=== PATIENT | male | born 1955 | race Asian ===

== ENCOUNTER 2016-10-29 09:18 | Emergency (ER) | payer OTHER ==
[2016-10-29 09:28] VITALS: BP 158/89; PULSE 87; RESP 18; TEMP 97.2; O2SAT 95
[2016-10-29] MEDS ORDERED: predniSONE 20 MG TAB PO ONE (10:02)
[2016-10-29] MEDS ORDERED: FAMOTIDINE 20 MG TAB PO ONE (10:03)
--- NOTE | 2016-10-29 10:16 | UCPHY ---
H & P Time Seen by Provider: 10/29/16 09:41 Patient Type: New HPI/ROS: This patient complains of lip swelling to the upper lip over the past day and half. He noticed the symptoms starting after eating shrimp. He does have a history of allergies to shellfish but has been able tolerate shrimp prior to this. This swelling was mild last night but became moderate this morning and prompted his visit. He reports that the swelling extends in the upper lip to the left cheek a bit. He took Benadryl last night and has not taken anything this morning. He has no other associated symptoms. ROS: He reports no fevers or other constitutional symptoms. HEENT: No difficulty swallowing or talking. Pulmonary: No wheezing or shortness of breath. Cardiovascular: No heart palpitations or lightheadedness. GI: No nausea or vomiting. Integumentary: No skin itching or rash. 7 point ROS is otherwise negative. Past Medical/Surgical History: Allergies to shellfish otherwise healthy. Smoking Status: Former smoker Physical Exam: General Appearance: Pleasant Tibetan gentleman. Alert, no distress. Eyes: Pupils equal and round no pallor or injection. ENT, Mouth: Mucous membranes moist. The patient has moderate angioedema to the upper lip. There is no dental tenderness to percussion or gingival swelling. He has a Mallampati 1 airway with no evidence of airway obstruction. He has no stridor or dysphonia. No drooling no submental swelling. Respiratory: There are no retractions, lungs are clear to auscultation. Cardiovascular: Regular rate and rhythm. Neurological: Alert with no focal deficits. Skin: Warm and dry, no rashes. Musculoskeletal: Neck is supple nontender. Psychiatric: Mood and affect normal DIFFERENTIAL DIAGNOSIS: After history and physical exam differential diagnosis was considered for allergic angioedema, doubt cellulitis Constitutional: Initial Vital Signs Temperature (C) 36.2 C 10/29/16 09:26 Heart Rate 87 10/29/16 09:26 Respiratory Rate 18 10/29/16 09:26 Blood Pressure 158/89 H 10/29/16 09:26 O2 Sat (%) 95 10/29/16 09:26 O2 Delivery Mode Room Air Allergies/Adverse Reactions: No Known Allergies Allergy (Verified 10/29/16 09:25) Home Medications: Medication Instructions Recorded predniSONE 60 mg PO DAILY #11 tab 10/29/16 Medical Decision Making ED Course/Re-evaluation: Prednisone and Pepcid p. o.. I counseled the patient regarding allergic angioedema I suspect the shrimp was the culprit allergen. Clinically, I appreciate no evidence of anaphylaxis or other concerning findings. No evidence of airway obstruction currently. - Data Points Medications Given: Discontinued Medications Famotidine (Pepcid) 40 mg PO EDNOW ONE Stop: 10/29/16 10:04 Last Admin: 10/29/16 10:13 Dose: 40 mg Prednisone (Prednisone) 60 mg PO EDNOW ONE Stop: 10/29/16 10:03 Last Admin: 10/29/16 10:13 Dose: 60 mg Departure - Departure Disposition: Home, Routine, Self-Care Clinical Impression: Angioedema of lips Qualifiers: Encounter type: initial encounter Qualified Code(s): T78.3XXA - Angioneurotic edema, initial encounter Condition: Good Instructions: Angioedema (ED) Additional Instructions: Diagnosis: Angioedema of lips Your lip swelling is likely attributable to an allergy to shrimp. Plan: Avoid shrimp Consider allergy testing with Dr. Faustin Prednisone as prescribed in the morning after breakfast Benadryl in addition 25-50 mg per 6 hours while awake until symptoms resolve Pepcid in addition 40 mg a day until symptoms resolve Go to the emergency department for any significant worsening despite the treatment plan. Referrals: Sharee Houser MD [Primary Care Provider] - As per Instructions Jessica FAUSTIN [Medical Doctor] - As per Instructions Prescriptions: predniSONE 60 mg PO DAILY #11 tab - PQRS PQRS Measurement: NA
== END 2016-10-29 10:24 | disposition home or self-care (01) ==
LOC: CED 09:18
DX: T78.3XXA Angioneurotic edema, initial encounter (principal)
CPT/HCPCS: G0463-PO

== ENCOUNTER 2018-08-31 14:46 | Day surgery (SDC) | payer OTHER ==
[2018-08-31] MEDS ORDERED: PROPOFOL/EMULSION 500 MG/50 ML BOTTLE IV ONE (15:41)
[2018-08-31] MEDS ORDERED: LIDOCAINE 2% 5 ML SDV ONE (15:44)
[2018-08-31] MEDS ORDERED: MIDAZOLAM 2 MG/2 ML VIAL IVP ONE (16:10)
--- NOTE | 2018-08-31 16:11 | POSTANESTH ---
Post Anesthetic Evaluation Cardiovascular Status: Normal, Stable Respiratory Status: Normal, Stable Level of Consciousness/Mental Status: Can Participate in Eval, Mildly Sleepy, Arousable Pain Control: Adequate, Prn Tx Ordered Nausea/Vomiting Control: Adequate, Prn Tx Ordered Complications Possibly Related to Anesthesia: None Noted
--- NOTE | 2018-08-31 16:11 | PDANEPAE ---
ANE History of Present Illness gastric cancer ANE Past Medical History - Cardiovascular History Hx Hypertension: No Hx Arrhythmias: No Hx Chest Pain: No Hx Coronary Artery / Peripheral Vascular Disease: No Hx CHF / Valvular Disease: No Hx Palpitations: No - Pulmonary History Hx COPD: No Hx Asthma/Reactive Airway Disease: No Hx Recent Upper Respiratory Infection: No Hx Oxygen in Use at Home: No Hx Sleep Apnea: No Sleep Apnea Screening Result - Last Documented: Negative - Neurologic History Hx Cerebrovascular Accident: No Hx Seizures: No Hx Dementia: No - Endocrine History Hx Diabetes: No Obesity: no - Renal History Hx Renal Disorders: No - Liver History Hx Hepatic Disorders: No - Neurological & Psychiatric Hx Hx Neurological and Psychiatric Disorders: No - Cancer History Hx Cancer: Yes Cancer History Comment: NEW DX [place] 08/20/18 - Congenital Disorder History Hx Congenital Disorders: No - GI History Hx Gastrointestinal Disorders: Yes Gastrointestinal History Comment: DYSPEPSIA. LUQ PAIN - Other Health History Other Health History: ANEMIA - Chronic Pain History Chronic Pain: Yes (LUQ) - Surgical History Prior Surgeries: [facility]. HEMORRHOID BANDING ANE Review of Systems Review of systems is: negative Review of Systems: - Exercise capacity METS (RN): 4 METS ANE Patient History - Allergies Allergies/Adverse Reactions: No Known Allergies Allergy (Verified 10/29/16 09:25) - Home Medications Home medications: home medication list seen and reviewed Home Medications: Fentanyl ONCE 08/28/18 [Last Taken Unknown] Bentyl 20 MG (*) 08/31/18 [Last Taken 08/30/18 21:00] Percocet 5-325 mg Tablet 08/31/18 [Last Taken 08/30/18 21:00] - NPO status NPO Since - Liquids (Date): 08/31/18 NPO Since - Liquids (Time): 13:00 NPO Since - Solids (Date): 08/31/18 NPO Since - Solids (Time): 08:00 - Anes Hx Anes Hx: no prior problems - Smoking Hx Smoking Status: Former smoker ANE Labs/Vital Signs - Vital Signs Blood Pressure: 129/81 Heart Rate: 78 Respiratory Rate: 16 O2 Sat (%): 96 Height: 172.72 cm Weight: 68.039 kg ANE Physical Exam - Airway Neck exam: FROM Mallampati Score: Class 2 Mouth exam: normal dental/mouth exam - Pulmonary Pulmonary: no respiratory distress - Cardiovascular Cardiovascular: regular rate and rhythym - ASA Status ASA Status: III ANE Anesthesia Plan Anesthesia Plan: GA with mask
[2018-08-31] MEDS ORDERED: LR 1,000 ML IV ONE (16:19)
[2018-08-31] MEDS ORDERED: INDOMETHACIN 50 MG SUPP PR PRN (16:19)
--- NOTE | 2018-08-31 16:19 | PDGENHP ---
History & Physical Chief Complaint: gastric cancer staging History of Present Illness: 62 year old male presents for gastric cancer staging. Pertinent Past, Social, Family History: PMHx; gastric cancer. SugHx; CCY. Former smoker Relevant Physical Exam: HEENT: anicteric. Cv: RRR+s1s2. Lungs: CTAB. Abd; soft, nt, +bs Cardiorespiratory Assessment: ASA 3
[2018-08-31] MEDS ORDERED: NS 500 ML IV SCH (16:30)
[2018-08-31] MEDS ORDERED: ACETAMINOPHEN 500 MG TAB PO PRN (16:38)
[2018-08-31] MEDS ORDERED: NALOXONE HCL 0.4 MG/ML INJ IVP PRN (16:38)
[2018-08-31] MEDS ORDERED: ALBUTEROL 3 ML DEYVIAL IH PRN (16:38)
[2018-08-31] MEDS ORDERED: ONDANSETRON 4 MG/2 ML VIAL IVP PRN (16:38)
[2018-08-31] MEDS ORDERED: DIAZEPAM 5 MG/ML 1 ML SYR IVP PRN (16:38)
[2018-08-31] MEDS ORDERED: LR 500 ML IV PRN (16:38)
[2018-08-31] MEDS ORDERED: fentaNYL 100 MCG/2 ML INJ IVP PRN (16:38)
[2018-08-31] MEDS ORDERED: oxyCODONE IR 5 MG TAB PO PRN (16:38)
[2018-08-31] MEDS ORDERED: HYDROCODONE/APAP 5/325 TAB PO PRN (16:38)
[2018-08-31] MEDS ORDERED: HYDROmorphONE/DILAUDID 2 MG/ML INJ IVP PRN (16:38)
--- NOTE | 2018-08-31 17:12 | GIREPORT ---
[facility] Surgical Services - Endoscopy Department Patient Name: Virgen Canchola Procedure Date: 08/31/2018 4:25 PM Patient Type: Outpatient Attending MD/ ER Physician: Gilmar Metzger MD Procedure: Upper EUS Indications: Abnormal abdominal/pelvic CT scan, Pre-treatment staging of gastric adenocarcinoma Patient Profile: 62 year old male presents for evaluation of abnormal imaging/staging of a gastric cancer. Providers: Gilmar Metzger MD Medicines: Monitored Anesthesia Care Complications: No immediate complications. Estimated blood loss: Minimal. Description of Procedure: After obtaining informed consent, the endoscope was passed under direct vision. Throughout the procedure, the patient's blood pressure, pulse, and oxygen saturations were monitored continuously. The Endosonoscope was introduced through the mouth, and advanced to the second part of duoden um. The Endosonoscope was introduced through the mouth, and advanced to the second part of duodenum. The upper EUS was accomplished without difficu lty. The esophagus, stomach, and duodenum were visualized endosonographicall y. The patient tolerated the procedure well. Findings: Endoscopic Finding : The Z-line was irregular. Biopsies were taken with a cold forceps for histology. A hiatal hernia was present. A large, fungating, infiltrative and ulcerated, non-circumferential mas s with no bleeding was found on the posterior wall of the gastric body. I t was at least 5cms in length. The examined duodenum was normal. Endosonographic Finding : A hypoechoic irregular mass was identified endosonographically in the b triny of the stomach. The endosonographic borders were poorly-defined. There was sonographic evidence of penetration beyond the MP layer consistent with a T3 lesion. There was no sign of significant endosonographic abnormality in the visualized portion of the liver. No masses were identified. Pancreatic parenchymal abnormalities were noted in the entire pancreas. These consisted of hyperechoic foci. A few abnormal lymph nodes were visualized in the perigastric region. T he nodes were round, hypoechoic and had well defined margins. They were sm all (3-5mm) and not amenable to FNA due to its peritumoroal relationship. Estimated Blood Loss: Estimated blood loss was minimal. Post Op Diagnosis: - Z-line irregular. Biopsied. - Hiatal hernia. - Malignant gastric tumor on the posterior wall of the gastric body. - Normal examined duodenum. - A mass was found in the body of the stomach. This was staged T3 Nx . - There was no evidence of significant pathology in the visualized port ion of the liver. - Pancreatic parenchymal abnormalities consisting of hyperechoic foci w ere noted in the entire pancreas. - A few abnormal lymph nodes were visualized in the perigastric region. They were 3-5mm and were peritumoral and thus not amenable to FNA. Recommendation: - Discharge patient to home (with escort). - Advance diet as tolerated. - Continue present medications. - Await pathology results. - Follow up with oncology. - Thank you for allowing me to participate in the care of the patient. Attending Participation: I personally performed the entire procedure. Gilmar Metzger MD Gilmar Metzger MD 08/31/2018 5:11:58 PM This report has been signed electronicallyGilmar Metzger MD Number of Addenda: 0 Note Initiated On: 08/31/2018 4:25 PM [email or web address]
[2018-08-31 18:13] VITALS: BP 124/81
== END 2018-08-31 18:13 | disposition home or self-care (01) ==
LOC: FSGY 14:46
PROVIDERS: ATTEND Internal Medicine Gastroenterology
DX: C16.9 Malignant neoplasm of stomach, unspecified (principal); K22.9 Disease of esophagus, unspecified; R59.0 Localized enlarged lymph nodes; K31.89 Other diseases of stomach and duodenum; R93.3 Abnormal findings on diagnostic imaging of other parts of digestive tract; K44.9 Diaphragmatic hernia without obstruction or gangrene; Z87.891 Personal history of nicotine dependence
CPT/HCPCS: J2250; J2704